=== PATIENT | female | born 2000 | race Two or more races ===

== ENCOUNTER 2019-11-18 12:35 | Emergency (ER) | payer MEDICAID ==
[~2019-11-18] VITALS: Ht 157.5 cm; Wt 63.5 kg
--- NOTE | 2019-11-18 12:35 | NUR ---
ED Nurse Note: Pt brought in by ambulance from home d/t n/v that started today with some coughing. Pt reports being tested positive for covid x 2 days ago. Pt complaining of chest congestion as well. Respirations even and unlabored on room air. Vitals stable as documented.
[2019-11-18 12:40] VITALS: BP 134/91
--- NOTE | 2019-11-18 12:41 | Emergency Room Report ---
History of Present Illness General Chief Complaint: Vomiting Source: Patient, EMS (Flako Napoles MD) Present Illness HPI Disclaimer: Please note that this report is being documented using DRAGON technology. This can lead to erroneous entry secondary to incorrect interpretation by the dictating instrument. HPI: 19-year-old female presents for evaluation of abdominal pain vomiting and diarrhea. Symptoms began this morning. Last night she ate a typical meal consisting of red meat and went to bed in her usual state of health. She woke up early this morning complaining of epigastric and right-sided upper abdominal pain that does not radiate. Noted significant nausea and persistent vomiting. Nonbloody emesis. Also noted some loose stools. Denied hematuria, dysuria, hematochezia or melena. No prior history of abdominal surgeries. She is currently menstruating. Denies alcohol or drug use. Patient tested positive for COVID-19 from a different facility with multiple family members also testing positive at home but no other family numbers have similar GI like symptoms. PMH: Denies PSH: Denies Allergies: Denies Social Hx: No drug or alcohol use (Flako Napoles MD) Allergies: Coded Allergies: No Known Allergies (Unverified , 11/18/19) COVID-19 Screening Contact w/high risk pt: No Recent Travel to affected area: No Experienced COVID-19 symptoms?: Yes COVID-19 symptoms experienced: Cough (Flako Napoles MD) Patient History Now: No (Flako Napoles MD) Review of Systems All Other Systems: negative except mentioned in HPI (Flako Napoles MD) Physical Exam Vital Signs Date Time Temp Pulse Resp B/P (MAP) Pulse Ox O2 Delivery O2 Flow Rate FiO2 11/18/19 12:31 98.2 130 20 138/92 (107) 100 Room Air General: Awake and alert, appears uncomfortable, tachycardic HEENT: NC/AT. EOMI. Cardiovascular: Tachycardic, no murmur Resp: Normal work of breathing. No cough, wheezing or crackles appreciated Abdomen: Abdomen is soft, nondistended. Tender palpation in the epigastrium right upper quadrant without Tijerina sign. No tenderness in left upper quadrant or in the lower quadrants bilaterally. No suprapubic tenderness. Skin: Intact. No abrasions, laceration or rash over the exposed skin MSK: Normal tone and bulk. Moving all extremities. No obvious deformity. Neuro: Awake and alert. Mentating appropriately. (Flako Napoles MD) Medical Decision Making Diagnostic Impression: Primary Impression: Cannabinoid hyperemesis syndrome ER Course 19-year-old female who recently tested positive for COVID-19 presents for abdominal pain, vomiting and diarrhea. Differential includes was not limited to viral syndrome, COVID-19 symptoms, gastritis, gastroenteritis, pancreatitis, cholecystitis, choledocholithiasis, nephrolithiasis, UTI, food poisoning, appendicitis, bowel obstruction to name a few. Ordered IV fluids, antiemetics, broad labs and an ultrasound to evaluate the gallbladder and biliary system. Can advance work-up as needed. (Flako Napoles MD) ER Course Signout received from Dr. Napoles Patient with acute nausea and vomiting, patient endorses that she has been utilizing a lot of marijuana through vaping, patient feels better with fluid administration, antiemetics counseled patient to Stop utilizing marijuana Patient's abdomen is soft nontender no rebound no guarding Ultrasound is negative for any acute pathology disposition home with return precautions follow-up with PCP (Rubio Morocho MD) EKG Diagnostic Results EKG Time: 12:43 Rate: normal Rhythm: NSR ST Segments: no acute changes Other Impression Sinus rhythm, normal axis, normal intervals, no ST segment changes. (Flako Napoles MD) Rhythm Strip Diag. Results Rhythm Strip Time: 12:43 EP Interpretation: yes Rate: 90s Rhythm: NSR, no PVC's, no ectopy (Flako Napoles MD) Last Vital Signs Date Time Temp Pulse Resp B/P (MAP) Pulse Ox O2 Delivery O2 Flow Rate FiO2 11/18/19 12:31 98.2 130 20 138/92 (107) 100 Room Air (Flako Napoles MD) Disposition: HOME, SELF-CARE Condition: Stable Scripts Ondansetron (Zofran) 4 Mg Tablet 4 MG ORAL Q8H PRN for Nausea & Vomiting, #10 TAB 0 Refills Prov: Rubio Morocho MD 11/18/19 Referrals: [facility] Patient Instructions: Cannabis Use Disorder, Nausea and Vomiting, Adult Additional Instructions: The patient was provided with discharge instructions, notified to follow-up with a primary care doctor and or specialist in the next 24-48 hours, and to return to the ED if they have worsening of their symptoms. Please note that this report is being documented using [employer] technology. This can lead to erroneous entry secondary to incorrect interpretation by the dictating instrument. Flako Napoles MD Nov 18, 2019 12:41 Rubio Morocho MD Nov 18, 2019 15:09
[2019-11-18 13:19] LABS: APPEARANCE,URINE SLIGHTLY CLOUDY; BILIRUBIN, URINE NEGATIVE (NEGATIVE); GLUCOSE, URINE (UA) NEGATIVE (NEGATIVE); KETONES,URINE 3+ (NEGATIVE); LEUKOCYTE ESTERASE ,URINE 2+ (NEGATIVE); NITRITE,URINE NEGATIVE (NEGATIVE); PH,URINE 8 (4.5-8.0); PROTEIN,URINE 2+ (NEGATIVE); UROBILINOGEN,URINE NORMAL MG/DL (0.0-1.0)
[2019-11-18 13:19] LABS: HEMATOCRIT 43.2 % (37.0-47.0); HEMOGLOBIN 14.2 G/DL (12.0-16.0); MEAN CORPUSCULAR VOLUME 75 FL (80-99); PLATELET COUNT 451 K/UL (150-450); RED BLOOD COUNT 5.75 M/UL (4.20-5.40); RED CELL DISTRIBUTION WIDTH 12.3 % (11.6-14.8); WHITE BLOOD COUNT 10.7 K/UL (4.8-10.8)
[2019-11-18 13:23] LABS: COLOR,URINE YELLOW
[2019-11-18 13:23] LABS: ANION GAP 14 mmol/L (5-15); BLOOD UREA NITROGEN 14 mg/dL (7-18); CARBON DIOXIDE 27 MMOL/L (21-32); CHLORIDE 103 MMOL/L (98-107); CREATININE 0.8 MG/DL (0.55-1.30); POTASSIUM 3.7 MMOL/L (3.5-5.1); SODIUM 144 MMOL/L (136-145)
[2019-11-18 13:27] LABS: ALANINE AMINOTRANSFERASE 23 U/L (12-78); ALBUMIN 4.7 G/DL (3.4-5.0); ALKALINE PHOSPHATASE 83 U/L (46-116); ASPARTATE AMINO TRANSFERASE 13 U/L (15-37); BILIRUBIN,TOTAL 0.7 MG/DL (0.2-1.0)
[2019-11-18] MEDS ORDERED: ZOFRAN4 MG ORAL (15:08)
[2019-11-18 15:57] VITALS: BP 134/91
--- NOTE | 2019-11-18 15:58 | NUR ---
ER DISCHARGE NOTE: Patient is cleared to be discharged per ERMD, pt is aox4, on room air, with stable vital signs. pt was given dc and prescription instructions, pt was able to verbalize understanding, pt id band and iv site removed without complications. pt is able to ambulate with steady gait. pt took all belongings.
--- NOTE | 2019-11-18 16:32 | Diagnostic Imaging Report ---
Indication: Right upper quadrant pain Technique: Imaging of the right upper quadrant; only limited images obtained due to to patient being COVID positive Comparison: none Findings: Gallbladder is unremarkable. The common bile duct measures 2 mm diameter. Liver demonstrates nonspecific mildly increased echogenicity. No focal abnormality. Unremarkable pancreas Impression: Negative for gallstones or dilated bile duct. Slightly increased hepatic echogenicity, could indicate hepatocellular disease such as fatty change
[2019-11-19] MEDS ORDERED: FAMOTIDINE20 MG ORAL (10:04)
[2019-11-19] MEDS ORDERED: ZOFRAN4 MG ORAL (10:19)
== END 2019-11-18 15:58 | disposition home or self-care (01) ==
LOC: EDBD 12:35 → EMR 12:50
DX: F12.988 Cannabis use, unspecified with other cannabis-induced disorder (principal); R11.2 Nausea with vomiting, unspecified; R05 Cough; R00.0 Tachycardia, unspecified; U07.1 COVID-19
CPT/HCPCS: 36415; 76705; 80053; 80307; 81003; 81025; 83690; 84484; 85007; 85025; 93005; 96361; 96374; 96375; G0480; J2405; J7030; S0028; Z7502; 99284

== ENCOUNTER 2019-11-19 08:23 | Emergency (ER) | payer SELFPAY ==
[~2019-11-19] VITALS: Ht 165.1 cm; Wt 70.3 kg
[~2019-11-19 08:23] MED LIST: ZOFRAN4 MG ORAL
[2019-11-19 08:24] VITALS: BP 130/80
--- NOTE | 2019-11-19 08:24 | NUR ---
ED Nurse Note: Patient MESFIN from home d/t intractable nausea since yesterday. Patient was here in the ED and prescribed nausea meds, but unable to fill Rx. Patient states she tested Covid-19 positive recently. Breathing even and unlabored, no s/s of respiratory distress. Patient AxO x 4. 20 g IV started in left AC. Blood drawn and sent to lab. Addendum: 11/19/19 at 0844 by RAFY ED Nurse Note: Patient states she vomited once, undigested food, this AM after waking up. Has been retching/feeling nauseated since with no additional vomiting.
[2019-11-19] MEDS ORDERED: Promethazine/Codeine 5ml UD ORAL ONE (08:45)
--- NOTE | 2019-11-19 08:55 | Emergency Room Report ---
History of Present Illness General Chief Complaint: Nausea Source: Patient Present Illness HPI 19-year-old female presents ED for evaluation of coughing and vomiting. Brought in by EMS from home. Patient was seen here yesterday for this. Was given IV fluids and Zofran and discharged. States she was unable to fill her prescriptions last night. Denies abdominal pain. Denies fevers or chills. States cough is dry. States that numerous family members tested positive for COVID and she tested positive for COVID as well about 10 days ago. Denies any fever or shortness of breath. No other aggravating relieving factors. Denies any other associated symptoms Allergies: Coded Allergies: No Known Allergies (Unverified , 11/18/19) COVID-19 Screening Contact w/high risk pt: Yes Recent Travel to affected area: No Experienced COVID-19 symptoms?: Yes COVID-19 symptoms experienced: Shortness of Breath Patient History Past Medical History: none Past Surgical History: none Pertinent Family History: none Social History: Reports: drug use; Denies: smoking, alcohol use Now: No Immunizations: UTD Reviewed Nursing Documentation: PMH: Agreed; PSxH: Agreed Nursing Documentation-PMH Past Medical History: No Stated History Review of Systems All Other Systems: negative except mentioned in HPI Physical Exam Vital Signs Date Time Temp Pulse Resp B/P (MAP) Pulse Ox O2 Delivery O2 Flow Rate FiO2 11/19/19 08:17 98.2 82 18 130/80 (97) 98 Room Air Sp02 EP Interpretation: reviewed, normal General Appearance: no apparent distress, alert, GCS 15, non-toxic Head: normocephalic, atraumatic Eyes: bilateral eye normal inspection, bilateral eye PERRL ENT: hearing grossly normal, normal pharynx, no angioedema, normal voice Neck: full range of motion, supple/symm/no masses Respiratory: chest non-tender, lungs clear, normal breath sounds, speaking full sentences Cardiovascular #1: regular rate, rhythm, no edema Cardiovascular #2: 2+ carotid (R), 2+ carotid (L), 2+ radial (R), 2+ radial (L) , 2+ dorsalis pedis (R), 2+ dorsalis pedis (L) Gastrointestinal: normal bowel sounds, non tender, soft, non-distended, no guarding, no rebound Rectal: deferred Genitourinary: normal inspection, no CVA tenderness Musculoskeletal: back normal, normal range of motion, gait/station normal, non- tender Neurologic: alert, motor strength/tone normal, oriented x3, sensory intact, responsive, speech normal Psychiatric: judgement/insight normal, memory normal, mood/affect normal, no suicidal/homicidal ideation Reflexes: 3+ bicep (R), 3+ bicep (L), 3+ tricep (R), 3+ tricep (L), 3+ knee (R) , 3+ knee (L) Lymphatic: no adenopathy Medical Decision Making Diagnostic Impression: Primary Impression: Nausea and vomiting in adult patient Additional Impression: COVID-19 ER Course Hospital Course 19-year-old F presents to ED with nausea, vomiting, cough. tested COVID+ differential diagnosis: gastritis, pneumonia, cholecystitis Clinical course Patient placed on stretcher. In isolation. I wore full PPE. After initial history and physical I ordered labs, IV fluids, Zofran and pepcid, CXR Labs - no leukocytosis, no electrolyte abnormalities, LFTs normal CXR = no acute process I reviewed EMR. Patient seen yesterday. Patient positive THC. I discussed findings with patient. Encourage abstinence from marijuana. Patient tested positive for COVID however appears asymptomatic. No leukopenia. No fever. No cough. No shortness of breath. Recommend staying home and self quarantine. drink fluids. Rest. States she has a PMD. I feel this is a highly complex case requiring extensive working including EKG/ Rhythm strip, Xray/CT/US, Blood/urine lab work, repeat exams while in ED, and administration of strong opiates/narcotics for pain control, admission to hospital or close patient follow up. Diagnosis - nausea and vomiting in adult patient, COVID-19 Stable and discharged to home with prescriptions for zofran, pepcid. self- isolate. Followup with PMD. Return to ED if symptoms recur or worsen Labs Test 11/19/19 08:30 White Blood Count 8.0 K/UL (4.8-10.8) Red Blood Count 4.98 M/UL (4.20-5.40) Hemoglobin 12.4 G/DL (12.0-16.0) Hematocrit 37.6 % (37.0-47.0) Mean Corpuscular Volume 75 FL (80-99) Mean Corpuscular Hemoglobin 25.0 PG (27.0-31.0) Mean Corpuscular Hemoglobin Concent 33.1 G/DL (32.0-36.0) Red Cell Distribution Width 12.3 % (11.6-14.8) Platelet Count 364 K/UL (150-450) Mean Platelet Volume 6.0 FL (6.5-10.1) Neutrophils (%) (Auto) 64.0 % (45.0-75.0) Lymphocytes (%) (Auto) 27.4 % (20.0-45.0) Monocytes (%) (Auto) 6.9 % (1.0-10.0) Eosinophils (%) (Auto) 0.8 % (0.0-3.0) Basophils (%) (Auto) 0.9 % (0.0-2.0) Sodium Level 145 MMOL/L (136-145) Potassium Level 3.2 MMOL/L (3.5-5.1) Chloride Level 108 MMOL/L (98-107) Carbon Dioxide Level 23 MMOL/L (21-32) Anion Gap 14 mmol/L (5-15) Blood Urea Nitrogen 11 mg/dL (7-18) Creatinine 0.8 MG/DL (0.55-1.30) Estimat Glomerular Filtration Rate > 60 mL/min (>60) Glucose Level 104 MG/DL (74-106) Calcium Level 9.0 MG/DL (8.5-10.1) Total Bilirubin 0.8 MG/DL (0.2-1.0) Aspartate Amino Transf (AST/SGOT) 15 U/L (15-37) Alanine Aminotransferase (ALT/SGPT) 22 U/L (12-78) Alkaline Phosphatase 69 U/L (46-116) Total Protein 8.0 G/DL (6.4-8.2) Albumin 4.0 G/DL (3.4-5.0) Globulin 4.0 g/dL Albumin/Globulin Ratio 1.0 (1.0-2.7) Lipase 263 U/L (73-393) Chest X-Ray Diagnostic Results Chest X-Ray Diagnostic Results : Chest X-Ray Ordered: Yes # of Views/Limited/Complete: 1 View Indication: Shortness of Breath EP Interpretation: Yes Interpretation: no consolidation, no effusion, no pneumothorax, no acute cardiopulmonary disease Impression: No acute disease Electronically Signed by: Electronically signed by Gaurav Sood MD Last Vital Signs Date Time Temp Pulse Resp B/P (MAP) Pulse Ox O2 Delivery O2 Flow Rate FiO2 11/19/19 08:24 98.2 76 18 130/80 98 Room Air Status: improved Disposition: HOME, SELF-CARE Condition: Stable Scripts Ondansetron (Zofran) 4 Mg Tablet 4 MG ORAL Q8H PRN for Nausea & Vomiting, #10 TAB 0 Refills Prov: Gaurav Sood MD 11/19/19 Famotidine* (Pepcid 20mg tablet*) 20 Mg Tablet 20 MG ORAL DAILY, #30 TAB 0 Refills Prov: Gaurav Sood MD 11/19/19 Gaurav Sood MD November 19, 2019 08:55
[2019-11-19 08:56] LABS: BASOPHILS % (AUTO) 0.9 % (0.0-2.0); EOSINOPHILS % (AUTO) 0.8 % (0.0-3.0); HEMATOCRIT 37.6 % (37.0-47.0); HEMOGLOBIN 12.4 G/DL (12.0-16.0); LYMPHOCYTES % (AUTO) 27.4 % (20.0-45.0); MEAN CORPUSCULAR VOLUME 75 FL (80-99); MONOCYTES % (AUTO) 6.9 % (1.0-10.0); PLATELET COUNT 364 K/UL (150-450); RED BLOOD COUNT 4.98 M/UL (4.20-5.40); RED CELL DISTRIBUTION WIDTH 12.3 % (11.6-14.8)
--- NOTE | 2019-11-19 09:10 | NUR ---
ED Nurse Note: Xray at bedside
[2019-11-19 09:23] LABS: ANION GAP 14 mmol/L (5-15); BLOOD UREA NITROGEN 11 mg/dL (7-18); CARBON DIOXIDE 23 MMOL/L (21-32); CHLORIDE 108 MMOL/L (98-107); CREATININE 0.8 MG/DL (0.55-1.30); POTASSIUM 3.2 MMOL/L (3.5-5.1); SODIUM 145 MMOL/L (136-145)
[2019-11-19 09:28] LABS: ALANINE AMINOTRANSFERASE 22 U/L (12-78); ALKALINE PHOSPHATASE 69 U/L (46-116); ASPARTATE AMINO TRANSFERASE 15 U/L (15-37); BILIRUBIN,TOTAL 0.8 MG/DL (0.2-1.0)
--- NOTE | 2019-11-19 09:55 | Diagnostic Imaging Report ---
Indication: Shortness of breath Technique: One view of the chest Comparison: none Findings: Lungs and pleural spaces are clear. The heart size is normal. Impression: Negative
[2019-11-19] MEDS ORDERED: FAMOTIDINE20 MG ORAL (10:04)
[2019-11-19] MEDS ORDERED: ZOFRAN4 MG ORAL (10:19)
[2019-11-19 10:30] VITALS: BP 130/80
--- NOTE | 2019-11-19 10:30 | NUR ---
ER DISCHARGE NOTE: Patient is cleared to be discharged per Dr. Sood, pt is aox4, on room air, with stable vital signs. pt was given dc and prescription instructions, pt was able to verbalize understanding, pt id band and iv site removed without complications. pt is able to ambulate with steady gait. pt took all belongings.
== END 2019-11-19 10:30 | disposition home or self-care (01) ==
LOC: EDBD 08:23 → EMR 08:55
DX: R11.2 Nausea with vomiting, unspecified (principal); U07.1 COVID-19; R11.10 Vomiting, unspecified; F12.90 Cannabis use, unspecified, uncomplicated
CPT/HCPCS: 36415; 71045; 80053; 83690; 85025; 96361; 96374; 96375; 99284; J2405; J7030; S0028